=== PATIENT | male | born 1990 | race Caucasian/White ===

== ENCOUNTER 2017-11-01 10:05 | Emergency (ER) | payer OTHER ==
[2017-11-01 10:17] VITALS: BP 146/85; PULSE 79; RESP 16; TEMP 98.6; O2SAT 98
--- NOTE | 2017-11-01 10:41 | EDPHY ---
H & P Stated Complaint: head injury-walked into doorway this am, poss lac, no loc Time Seen by Provider: 11/01/17 10:36 HPI/ROS: CHIEF COMPLAINT: Minor head injury HISTORY OF PRESENT ILLNESS: The patient presents to the ED for evaluation of a minor head injury. The patient struck his head on a door jam while working today. He sustained a small nonsuturable laceration to the vertex of his head. He did not lose consciousness. He is not anticoagulated. He denies additional injury. The patient did take ibuprofen prior to arrival. He denies significant past medical history. REVIEW OF SYSTEMS: A comprehensive 10 point review of systems is otherwise negative aside from elements mentioned in the history of present illness. Source: Patient Exam Limitations: No limitations - Personal History Current Tetanus/Diphtheria Vaccine: Yes Current Tetanus Diphtheria and Acellular Pertussis (TDAP): Yes - Medical/Surgical History Hx Asthma: No Hx Chronic Respiratory Disease: No Hx Diabetes: No Hx Cardiac Disease: No Hx Renal Disease: No Hx Cirrhosis: No Hx Alcoholism: No Hx HIV/AIDS: No Hx Splenectomy or Spleen Trauma: No Other PMH: denies - Social History Smoking Status: Never smoked - Physical Exam Exam: General Appearance: Alert, no distress Head: Superficial nonsuturable 3 mm laceration noted to the vertex of the scalp , no significant hematoma Eyes: Pupils equal, round, reactive ENT, Mouth: No hemotympanum, no oral trauma Neck: Nontender, trachea midline Respiratory: No chest wall tender, subcutaneous air, lungs clear bilaterally Cardiovascular: Regular rate and rhythm Abdomen: Abdomen is soft and nontender, pelvis stable Skin: No lacerations, No abrasion Back: No midline T/L/S pain Extremities: Nontender, full range of motion Neurological: A&Ox3, normal motor function, normal sensory exam Constitutional: Initial Vital Signs Temperature (C) 37.0 C 11/01/17 10:15 Heart Rate 79 11/01/17 10:15 Respiratory Rate 16 11/01/17 10:15 Blood Pressure 146/85 H 11/01/17 10:15 O2 Sat (%) 98 11/01/17 10:15 O2 Delivery Mode Room Air Allergies/Adverse Reactions: No Known Allergies Allergy (Unverified 11/01/17 10:14) Home Medications: Medication Instructions Recorded NK [No Known Home Meds] 11/01/17 Medical Decision Making ED Course/Re-evaluation: The patient presents the ED with minor head trauma. He is in no acute distress. GCS is 15. Doubt intracranial hemorrhage or significant concussion. Patient is advised to use ice and ibuprofen for conservative management. He will be discharged home with customary aftercare instructions and return precautions. Departure - Departure Disposition: Home, Routine, Self-Care Clinical Impression: Scalp contusion, Scalp abrasion Condition: Good Instructions: Contusion in Adults (ED) Additional Instructions: 1. You have a nonsuturable superficial laceration on her scalp. 2. Take Ibuprofen or Motrin 600 mg by mouth three times a day. 3. Ice area of pain and swelling 20-30 minutes at a time 4 to 5 times a day for the next 2 days. Referrals: NONE *PRIMARY CARE P,. [Primary Care Provider] - As per Instructions
== END 2017-11-01 10:59 | disposition home or self-care (01) ==
DX: S00.03XA Contusion of scalp, initial encounter (principal); S00.01XA Abrasion of scalp, initial encounter; W22.8XXA Striking against or struck by other objects, initial encounter; Y92.69 Other specified industrial and construction area as the place of occurrence of the external cause

== ENCOUNTER 2017-11-02 17:41 | Emergency (ER) | payer OTHER ==
[2017-11-02 17:47] VITALS: RESP 18
--- NOTE | 2017-11-02 18:00 | EDPHY ---
H & P Time Seen by Provider: 11/02/17 17:49 HPI/ROS: CHIEF COMPLAINT: Head injury HISTORY OF PRESENT ILLNESS: 27-year-old male with no anticoagulant use seen the ER yesterday after he hit his head on a door jam with no loss of consciousness, no range of motion. Evaluated in the ER at that time, discharged. He returns to the ER complaining of progressive headache as well as new "neck stiffness ". No midline C-spine pain. No peripheral paresthesia, weakness, numbness. No nausea or vomiting. REVIEW OF SYSTEMS: A ten point review of systems was performed and is negative with the exception of the items mentioned in the HPI PAST MEDICAL/SURGICAL HISTORY: no anticoagulant use, no relevant medical/ surgical history SOCIAL HISTORY: denies alcohol use at time of incident PHYSICAL EXAM 1) GENERAL: Well-developed, well-nourished, alert and oriented. Appears to be in no acute distress. Answering questions appropriately. 2) HEAD: Normocephalic, abrasion to vertex of scalp 3) HEENT: Pupils equal, round, reactive to light bilaterally. Negative Horners. Nasopharynx, oropharynx, clear. No deformity or angulation of nose. No septal hematoma. No rhinorrhea. No oral trauma. Ears bilaterally with normal tympanic membranes. No hemotympanum. No fluid or blood in the external auditory canal. No raccoon eyes. No Cazares sign. Teeth are normally aligned with no gross malocclusion, TMJ bilaterally nontender, facial bones nontender including the zygomatic arch, maxilla mandible. 4) NECK: No cervical collar is on. Tender to palpation paraspinous cervical muscles. Posterior cervical spine midline is nontender, no stepoff, no effusion. Full range of motion which does not elicit any midline cervical spine pain, no posterior midline tenderness, no step-off.] 5) LUNGS: Clear to auscultation bilaterally, no wheezes, no rhonchi, no retractions. No obvious signs of trauma. No chest wall pain. No flaring, no grunting. Moving symmetrically. No crepitus. 6) HEART: Regular rate and rhythm, 7) ABDOMEN: No guarding, no rebound, no focal tenderness, no peritoneal signs, no signs of trauma, no ecchymosis 8) MUSCULOSKELETAL: Moving all extremities, no focal areas of tenderness, no obvious trauma. 9) BACK: No midline vertebral tenderness, no fluctuance, no step-off, no obvious trauma, no visual or palpable abnormality. 10) SKIN: No laceration. No abrasion 11) NEURO: Awake, alert, and oriented to person, place and time. Answers questions appropriately. There were no obvious focal neurologic abnormalities. No cerebellar dysfunction. Cranial nerves 2 through to 12 intact. Normal steady gait. Upper and lower extremities bilaterally with strength 5 / 5, reflexes 2+. DIFFERENTIAL DIAGNOSIS: Not necessarily in any particular order, my differential diagnosis includes, but is not limited to, concussion, skull fracture, intraparenchymal contusion, subarachnoid, subdural and epidural hematoma. The patient understands that this diagnosis is provisional and can never be 100% accurate. Smoking Status: Former smoker Constitutional: Initial Vital Signs Temperature (C) 36.8 C 11/02/17 17:44 Heart Rate 96 11/02/17 17:44 Respiratory Rate 18 11/02/17 17:44 Blood Pressure 151/79 H 11/02/17 17:44 O2 Sat (%) 97 11/02/17 17:44 O2 Delivery Mode Room Air Allergies/Adverse Reactions: No Known Allergies Allergy (Verified 11/02/17 17:43) Home Medications: Medication Instructions Recorded NK [No Known Home Meds] 11/01/17 MDM/Departure - [facility] ED Course/Re-evaluation: 5:50 p[address]m.: CT of the head will be obtained on this patient as he is complaining of new, progressive headaches. Regarding his neck pain, I think this is more than likely musculoskeletal in origin, he has no midline C-spine pain no neurologic deficits or neurologic complaints. I do not think that C- spine imaging currently indicated. Indications risks benefits discussed with patient he consents. 6:30 p.m.: CT head negative per Radiology interpretation with images reviewed by myself 6:31 p.m. Patient was re-evaluated with serial exams most recent at this time. Discussed his negative imaging results. Remains with a nonfocal exam. I do not think that hospitalization is indicated at this time. Plan will be discharged with usual and customary head injury precautions instructions, follow up with Dr. Zaida Dee. Care of patient under supervision of primary Supervising physician Dr Fransico Petty - Depart Disposition: Home, Routine, Self-Care Clinical Impression: Head injury due to trauma Qualifiers: Encounter type: initial encounter Qualified Code(s): S09.90XA - Unspecified injury of head, initial encounter Condition: Good Instructions: Head Injury (ED) Additional Instructions: PLEASE RETURN TO THE EMERGENCY DEPARTMENT (ED) IMMEDIATELY IF YOU HAVE INCREASED HEADACHE, PERSISTENT HEADACHE, VOMITING, WEAKNESS, CONFUSION OR VISUAL PROBLEMS. WE RECOMMEND THAT YOU DO NOT RESUME CONTACT SPORTS OR ACTIVITIES THAT TAKE COORDINATION OR BALANCE SUCH SKIING OR RIDING A BICYCLE UNTIL CLEARED TO DO SO BY YOUR DOCTOR OR BY A NEUROLOGIST. Referrals: Zaida Dee MD [Medical Doctor] - 1-2 days without fail
[2017-11-02 18:43] VITALS: BP 129/65; PULSE 73; TEMP 97.5; O2SAT 98
== END 2017-11-02 18:40 | disposition home or self-care (01) ==
DX: S09.90XD Unspecified injury of head, subsequent encounter (principal); Z87.891 Personal history of nicotine dependence; W22.03XD Walked into furniture, subsequent encounter